=== PATIENT | female | born 1985 | race African-American/Black ===

== ENCOUNTER 2017-05-16 06:21 | Inpatient (IN) | payer OTHER ==
[2017-05-15 12:35] VITALS: BMI 44.4
[2017-05-16] MEDS ORDERED: LIDOCAINE HCL 2% 100 MG/5 ML DISP.SYRIN ONE (07:18)
[2017-05-16] MEDS ORDERED: DEXAMETHASONE SOD PHOSPHATE 4 MG/1 ML VIAL ONE (07:18)
[2017-05-16] MEDS ORDERED: MIDAZOLAM HCL 2 MG/2 ML SINGLE DOSE VIAL ONE ×3 (07:19→07:38)
[2017-05-16] MEDS ORDERED: SUCCINYLCHOLINE CHLORIDE 200 MG/10 ML VIAL ONE (07:19)
[2017-05-16] MEDS ORDERED: ROCURONIUM BROMIDE 50 MG/5 ML VIAL ONE ×2 (07:19→09:49)
[2017-05-16] MEDS ORDERED: PROPOFOL 20 ML ONE ×2 (07:19)
[2017-05-16] MEDS ORDERED: fentaNYL CITRATE 250 MCG/5 ML VIAL ONE (07:19)
[2017-05-16] MEDS ORDERED: BUPIVACAINE HCL/PF 0.5% (5MG/ML) 10 ML VIAL ONE (07:35)
[2017-05-16] MEDS ORDERED: BUPIVACAINE HCL/PF 0.25% (2.5MG/ML) 10 ML VIAL ONE (07:37)
[2017-05-16] MEDS ORDERED: DEXAMETHASONE SOD PHOSPHATE/PF 10 MG/ML SDV ONE (07:37)
--- NOTE | 2017-05-16 07:46 | HP ---
History & Physical Update - History History: No Change - Physical Physical: No Change - Assessment Assessment: No Change - Plan Plan: No Change (No interval changes since last visit. Will proceed with surgery as discussed with Dr Cazares)
[2017-05-16] MEDS ORDERED: ONDANSETRON 4 MG/2 ML VIAL IVPUSH PRN (08:10)
[2017-05-16] MEDS ORDERED: oxyCODONE HCL 5 MG TABLET PO PRN (08:10)
[2017-05-16] MEDS ORDERED: ceFAZolin SODIUM 1 GM VIAL IVPB ONE (08:52)
[2017-05-16] MEDS ORDERED: ceFAZolin SODIUM 1 GM VIAL ONE (09:07)
[2017-05-16] MEDS ORDERED: PHENYLEPHRINE HCL 10 MG/1 ML SINGLE DOSE VIAL ONE (09:19)
[2017-05-16] MEDS ORDERED: BUPIVACAINE HCL/PF 0.5% (5MG/ML) 10 ML VIAL IJ ONE ×2 (09:30→10:21)
[2017-05-16] MEDS ORDERED: GLYCOPYRROLATE 0.2 MG/1 ML VIAL ONE (10:06)
[2017-05-16] MEDS ORDERED: NEOSTIGMINE METHYLSULFATE 0.5 MG/ML - 10 ML MDV ONE (10:06)
--- NOTE | 2017-05-16 10:29 | OP ---
Operative Note - Note: Operative Date: 05/16/17 Pre-Operative Diagnosis: Morbid obesity Operation: Laparoscopic vertical sleeve gastrectomy, wedge liver biopsy, EGD Post-Operative Diagnosis: Other (Morbid obesity, hepatomegaly) Surgeon: Raf Cazares Level Vial Inside Grinder: Vianca Hollingsworth Anesthesia: General Specimens Removed: Greater curvature of stomach. Liver biopsy Estimated Blood Loss (mls): 30 Drains & Tubes with Location: 36 Fr bougie Operative Report Dictated: Yes
[2017-05-16] MEDS ORDERED: morphine CARPU-JECT 4 MG/1 ML DISP.SYRIN IVPUSH PRN (10:30)
--- NOTE | 2017-05-16 10:36 | SURG ---
Surgery President Financial Institution Note President Financial Institution: Vianca Hollingsworth PA-C Date of Service: 05/16/17 Diagnosis: morbid obesity Procedure: Laparoscopic vertical sleeve gastrectomy, wedge liver biopsy, EGD I was present for the entirety of the operative procedure. For further detail, please refer to operative report. Visit type - Case Type Case Type: Scheduled Admission - Emergency Emergency Visit: No - New patient This patient is new to me today: Yes Date on this admission: 05/16/17
[2017-05-16] MEDS ORDERED: FAMOTIDINE 20 MG/50 ML IVPB 20 MG/50 ML MG IVPB ONE ×2 (10:42)
[2017-05-16] MEDS ORDERED: ACETAMINOPHEN 1000 MG/100 ML VIAL (NON FORMULARY) IVPB ONE (10:45)
[2017-05-16] MEDS ORDERED: FAMOTIDINE 20 MG PREMIXED IVPB IVPB ONE (11:06)
[2017-05-16 11:12] LABS: HEMATOCRIT 34.5 % (32.4-45.2); HEMOGLOBIN 11.1 GM/dL (10.7-15.3); MCH 27.2 pg (25.7-33.7); MEAN CELL VOLUME 84.9 fl (80-96); MEAN PLT VOLUME 9.8 fl (7.5-11.1); PLATELET COUNT 323 K/MM3 (134-434); RBC 4.07 M/mm3 (3.60-5.2); RDW 15.3 % (11.6-15.6); WHITE BLOOD COUNT 15.4 K/mm3 (4.0-10.0)
[2017-05-16] MEDS ORDERED: ONDANSETRON 4 MG/2 ML VIAL IVPUSH ONE (11:17)
[2017-05-16] MEDS ORDERED: METOCLOPRAMIDE HCL INJECTION 10 MG/2 ML VIAL IVPUSH ONE (11:35)
[2017-05-16 11:52] LABS: ALBUMIN 3.6 g/dl (3.4-5.0); ANION GAP 11 (8-16); BILIRUBIN,TOTAL 0.3 mg/dL (0.2-1.0); BLOOD UREA NITROGEN 18 mg/dL (7-18); CALCIUM 8.6 mg/dL (8.5-10.1); CHLORIDE 104 mmol/L (98-107); CO2 22 mmol/L (21-32); CREATININE 0.7 mg/dL (0.55-1.02); GLUCOSE,RANDOM 168 mg/dL (74-106); POTASSIUM 4.3 mmol/L (3.5-5.1); SGOT/AST 29 U/L (15-37); SGPT/ALT 29 U/L (12-78); SODIUM 137 mmol/L (136-145); TOT PROT 7.2 g/dl (6.4-8.2)
[2017-05-16 11:53] LABS: ALK PHOS 56 U/L (45-117)
--- NOTE | 2017-05-16 14:33 | SPEC ---
DATE OF OPERATION: 05/16/2017 SURGEON: Raf Cazares MD PROFESSIONAL DEVELOPMENT INSTRUCTOR: MARIE Dudley PREOPERATIVE DIAGNOSIS:1. Morbid obesity. 2. Body Mass Index (BMI) of 44.4. POSTOPERATIVE DIAGNOSIS:1. Morbid obesity. 2. Body Mass Index (BMI) of 44.4. 3. Hepatomegaly. PROCEDURE: 1. Laparoscopic vertical sleeve gastrectomy. 2. Laparoscopic wedge liver biopsy. 3. Esophagogastroduodenoscopy/upper endoscopy. SPECIMENS: 1. Greater curvature of the stomach. 2. Liver biopsy. ESTIMATED BLOOD LOSS: 30 mL. DRAINS: None. ANESTHESIA: GET. BOUGIE: Size 36 Tongan. REASON FOR PROCEDURE: This is a 31-year-old female who presents to the office for weight loss. After describing different options, she decided to proceed with a laparoscopic vertical sleeve gastrectomy, possible open, possible liver biopsy and EGD. RISKS AND BENEFITS: After describing the different options for weight loss management, the patient decided to proceed with a laparoscopic, possible open vertical sleeve gastrectomy. The patient was seen by the respective subspecialties and cleared for surgery. The risks and benefits of the procedure were explained. These included bleeding, infection, hernia, AR, DVT, PE, injury to surrounding structures including the liver, colon, bowel, spleen, esophagus, vessel injury, nerve injury, weight regain, gastric leak, staple line leak, sleeve leak, obstruction, vitamin deficiency, hair loss and as some of the possible complications. The patient understood and signed informed consent. DESCRIPTION OF PROCEDURE: The patient was placed supine on the operating room table. The patient underwent general endotracheal intubation. A Gilliland catheter was inserted. The arms were brought out at 90 degrees and secured. A footboard was placed and the legs were secured laterally with padding. The abdomen was prepped and draped in the usual sterile fashion. A timeout was performed. An incision was made in the left upper quadrant and a Veress needle inserted. Pneumoperitoneum was established. Subsequently, the Veress needle was removed and a 12-mm trocar was placed. The laparoscopic camera was then inserted and inspection of the abdominal cavity was performed. An incision was then made in the supraumbilical area and a 15-mm trocar was placed under direct visualization. A 5-mm trocar was then placed in the right upper quadrant and a 5-mm trocar was placed below the left subcostal margin. A stab wound was made in the subxiphoid area and a Magaly clamp inserted and removed to dilate the tract. A Indra liver retractor was inserted. The post was secured at the bedside by the nursing staff. The patient was placed in steep reverse Trendelenburg position and the Indra liver retractor was used to secure the liver towards the anterior abdominal wall. The pylorus was identified and 6 cm proximal to it, the lesser sac was entered using the LigaSure device. All lateral attachments to the greater curvature of the stomach, including the short gastric vessels, were ligated using the LigaSure device toward the gastrosplenic and gastrophrenic ligaments. Once this was done in its entirety, it was confirmed that all tubes within the nasal or oropharyngeal cavity, including a temperature probe, was removed by Anesthesia. The bougie was then inserted by Anesthesia. Transection of the stomach was then begun staying adjacent to the bougie but away from the angularis. Transection of the stomach was performed near the portion of the stomach where the lesser sac was entered. Two laparoscopic Endo-DELMI black daron were used at this location. Laparoscopic Endo DELMI purple staple loads were then used for the remainder of the transection until the greater curvature of the stomach was fully transected. This was done staying close to the bougie. Care was taken to stay away from the angle of His cephalad. The staple line was then inspected. Hemostasis was identified. A leak test was then performed. It was clamped distally to the staple line. Irrigation solution was placed in the left upper quadrant and air was insufflated by Anesthesia into the sleeve. No leaks were identified. No obstruction was identified. This was done through the entirety of the staple line. At this point, the irrigation solution was suctioned and again, hemostasis was noted. A wedge liver biopsy was then performed. The left lobe of the liver was identified and a portion of the edge was grasped. Using electrocautery, a wedge of the liver was excised. This was removed and sent off the field as specimen. Hemostasis at the site of the wedge liver biopsy was attained using electrocautery. The 15-mm supraumbilical trocar was then removed and the greater curvature specimen removed from the site using a sponge stick hatfield. The specimen was inspected and a Veress needle inserted. The specimen insufflated adequately and no leak was identified. The staple line was noted to be intact. A Iban-Maador device was then used to temporarily close the fascia with a 0 Vicryl suture at the site. The 15-mm trocar was then reinserted and the 12-mm trocar in the left upper quadrant was removed. The fascia at this site was then closed using the Iban-Amador device with a 0 Vicryl suture. Again, hemostasis was noted. The Indra liver retractor was then removed under direct visualization. Pneumoperitoneum was desufflated and the fascial sutures were secured. Hemostasis was noted at all incision sites and Marcaine was injected at all incision sites. All incision sites were closed using 4-0 Biosyn. Sterile dressings were applied. The patient tolerated the procedure well and was transferred to the recovery room in stable condition with the Gilliland catheter intact. The patient was transferred to telemetry for further monitoring. In addition, upper endoscopy was performed. The endoscope was inserted into the patient's mouth. The entirety of the esophagus, GE junction, gastric pouch and staple line were inspected. Hemostasis was noted. No leak or obstruction was noted. The stomach was suctioned at the end and the endoscope removed. The patient tolerated the procedure well and was transferred to the recovery room in stable condition. Kandace [id number]
[2017-05-16] MEDS ORDERED: morphine SULFATE 4 MG/ML VIAL ONE (15:26)
[2017-05-16] MEDS: SODIUM CHLORIDE 1,000 ML IV SCH (15:27)
[2017-05-16] MEDS: LACTATED RINGERS SOLUTION 1,000 ML IV SCH (15:27)
[2017-05-16] MEDS: ONDANSETRON 4 MG/2 ML VIAL IVPUSH SCH ×3 (15:28→23:49)
[2017-05-16] MEDS: METOCLOPRAMIDE HCL INJECTION 10 MG/2 ML VIAL IVPUSH SCH ×2 (16:17→21:35)
[2017-05-16] MEDS: ACETAMINOPHEN 1000 MG/100 ML VIAL (NON FORMULARY) IVPB SCH ×2 (17:39→21:34)
[2017-05-16] MEDS: ENOXAPARIN NA (PORCINE) 40 MG/0.4 ML DISP.SYRIN SQ SCH (21:35)
[2017-05-16] MEDS: FAMOTIDINE 20 MG/50 ML IVPB 20 MG/50 ML MG IVPB SCH (21:35)
[2017-05-16] MEDS: morphine SULFATE 4 MG/ML VIAL IVPUSH PRN (23:44)
[2017-05-17] MEDS: ONDANSETRON 4 MG/2 ML VIAL IVPUSH SCH ×6 (02:40→22:35)
[2017-05-17] MEDS: ACETAMINOPHEN 1000 MG/100 ML VIAL (NON FORMULARY) IVPB SCH ×2 (03:30→10:03)
[2017-05-17] MEDS: METOCLOPRAMIDE HCL INJECTION 10 MG/2 ML VIAL IVPUSH SCH ×4 (04:30→20:38)
[2017-05-17 06:29] LABS: HEMATOCRIT 30.9 % (32.4-45.2); HEMOGLOBIN 10.2 GM/dL (10.7-15.3); MCH 27.9 pg (25.7-33.7); MCHC 32.9 g/dl (32.0-36.0); MEAN CELL VOLUME 84.9 fl (80-96); MEAN PLT VOLUME 10.4 fl (7.5-11.1); PLATELET COUNT 312 K/MM3 (134-434); RBC 3.64 M/mm3 (3.60-5.2); RDW 15.1 % (11.6-15.6); WHITE BLOOD COUNT 11.3 K/mm3 (4.0-10.0)
[2017-05-17] MEDS: SODIUM CHLORIDE 1,000 ML IV SCH ×2 (06:44→10:49)
[2017-05-17 07:11] LABS: ALBUMIN 3.2 g/dl (3.4-5.0); ANION GAP 14 (8-16); BLOOD UREA NITROGEN 7 mg/dL (7-18); CALCIUM 8.1 mg/dL (8.5-10.1); CHLORIDE 102 mmol/L (98-107); CO2 20 mmol/L (21-32); CREATININE 0.5 mg/dL (0.55-1.02); GLUCOSE,RANDOM 88 mg/dL (74-106); POTASSIUM 4.1 mmol/L (3.5-5.1); SGOT/AST 35 U/L (15-37); SGPT/ALT 34 U/L (12-78); SODIUM 136 mmol/L (136-145)
[2017-05-17 07:13] LABS: ALK PHOS 49 U/L (45-117); BILIRUBIN,TOTAL 0.3 mg/dL (0.2-1.0); TOT PROT 6.6 g/dl (6.4-8.2)
--- NOTE | 2017-05-17 09:08 | PN ---
Addendum entered and electronically signed by Larry Ramsay PA 05/17/17 10:15: UGI: no evidence of leak, extravasation or gastric outlet obstruction. BST1 diet ordered Original Note: Progress Note (short form) - Note Progress Note: POD #1 Alert. Sitting in bed. C/o intermittent nausea (no vomiting) and mild incisional tenderness. Adequate pain control via prn meds. Using her incentive spirometer as directed. She has gotten OOB and ambulated unassisted. Voiding spontaneously. Denies n/v/f/c, CP, palpitations, SOB, dizzy or weak. Last Vital Signs Temp Pulse Resp BP Pulse Ox 99.0 F 60 20 146/72 99 05/17/17 06:00 05/17/17 06:00 05/17/17 06:00 05/17/17 06:00 05/16/17 22:00 CBC, BMP 05/17/17 06:05 05/17/17 06:05 PE Gen: nad ABD: morbidly obese habitus. All surgical ports c/d/i. No hematoma LE: SCDs bilat. Soft. NT <Larry Ramsay P - Last Filed: 05/17/17 09:20> - Note Progress Note: Agree POD 1 Pain controlled Abd soft UGI: no leak/obstruction Clears Ambulate <Raf Cazares - Last Filed: 05/17/17 14:08> Problem List - Problems (1) Morbid obesity due to excess calories Assessment/Plan: POD #1 s/p Laparoscopic vertical sleeve gastrectomy, wedge liver biopsy, EGD f/u UGI --> if no leak will start bariatric stage 1 diet Cont oob and ambulate Incentive spirometer Pain management prn Zofran prn dc planning 05/18/17 Code(s): E66.01 - MORBID (SEVERE) OBESITY DUE TO EXCESS CALORIES <Larry Ramsay P - Last Filed: 05/17/17 09:20>
[2017-05-17] MEDS: LACTATED RINGERS SOLUTION 1,000 ML IV SCH (10:03)
[2017-05-17] MEDS: ENOXAPARIN NA (PORCINE) 40 MG/0.4 ML DISP.SYRIN SQ SCH ×2 (10:04→22:34)
[2017-05-17] MEDS: FAMOTIDINE 20 MG/50 ML IVPB 20 MG/50 ML MG IVPB SCH ×2 (10:04→22:34)
[2017-05-17] MEDS: morphine SULFATE 4 MG/ML VIAL IVPUSH PRN ×2 (10:04→20:34)
[2017-05-17] MEDS ORDERED: oxyCODONE HCL 5 MG TABLET PO PRN (10:19)
[2017-05-17] MEDS ORDERED: SODIUM CHLORIDE 1,000 ML IV SCH (10:30)
--- NOTE | 2017-05-17 16:03 | PATH ---
Surgical Pathology Report Patient Name: RAMIRO BROWN [facility]. Rec. #: [id number] /Age/Gender: 1985 (Age: 31) / F Account: [id number] Location: 4 W TELEMETRY U Taken: 05/16/2017 Received: 05/16/2017 Reported: 05/17/2017 Physicians: Raf Cazares M.D. Specimen(s) Received A: GREATER CURVATURE STOMACH B: LIVER BIOPSY Clinical History Morbid obesity Final Diagnosis A. STOMACH, GREATER CURVATURE, LAPAROSCOPIC VERTICAL SLEEVE GASTRECTOMY: PORTION OF STOMACH WITH MODERATE CHRONIC GASTRITIS. IMMUNOHISTOCHEMICAL STAIN FOR H. PYLORI IS POSITIVE (MANY). B. LIVER, BIOPSY: LIVER PARENCHYMA WITH MINIMAL STEATOSIS (< 5%). NO INCREASE IN IRON AND FIBROSIS ON PERFORMED SPECIAL STAINS (IRON AND TRICHROME). Electronically Signed Amrita Jurado M.D. Gross Description A. Received in formalin, labeled "greater curvature of stomach," is an 89 gram, 16.0 x 3.5 x 3.2 cm. portion of stomach with a stapled margin of resection. The serosa is jeong-montero with minimal attached fat. The mucosa is jeong-pink with normal folds. No mucosal masses are identified. Radio Frequency Engineer sections are submitted in one cassette. B. Received in formalin labeled "liver biopsy," and a 3.3 x 1.5 x 0.8 cm jeong, irregular portion of soft tissue, consistent with a liver biopsy. The specimen is sectioned and entirely submitted in one cassette. /05/16/2017 saudi05/16/2017
[2017-05-18] MEDS: METOCLOPRAMIDE HCL INJECTION 10 MG/2 ML VIAL IVPUSH SCH ×2 (03:18→09:54)
[2017-05-18] MEDS: ONDANSETRON 4 MG/2 ML VIAL IVPUSH SCH ×2 (03:18→06:30)
[2017-05-18 08:14] VITALS: BP 115/69; PULSE 60; TEMP 98.6
[2017-05-18] MEDS: LACTATED RINGERS SOLUTION 1,000 ML IV SCH (09:54)
[2017-05-18] MEDS: FAMOTIDINE 20 MG/50 ML IVPB 20 MG/50 ML MG IVPB SCH (09:54)
[2017-05-18] MEDS: ENOXAPARIN NA (PORCINE) 40 MG/0.4 ML DISP.SYRIN SQ SCH (09:54)
== END 2017-05-18 11:02 | disposition home or self-care (01) | DRG 403 ==
LOC: JSAMEDAYSX 06:21 → EDSTATUS 08:00 → J4W 14:45
PROVIDERS: ADMIT Surgery; ATTEND Surgery
PROC: 0FB24ZX Excision of Left Lobe Liver, Percutaneous Endoscopic Approach, Diagnostic (ICD-10-PCS; 2017-05-16)
PROC: 0DJ08ZZ Inspection of Upper Intestinal Tract, Via Natural or Artificial Opening Endoscopic (ICD-10-PCS; 2017-05-16)
PROC: 0DB64Z3 Excision of Stomach, Percutaneous Endoscopic Approach, Vertical (ICD-10-PCS; principal; 2017-05-16 08:00)
DX: E66.01 Morbid (severe) obesity due to excess calories (principal); Z68.41 Body mass index [BMI] 40.0-44.9, adult; R16.0 Hepatomegaly, not elsewhere classified; K29.50 Unspecified chronic gastritis without bleeding; B96.81 Helicobacter pylori [H. pylori] as the cause of diseases classified elsewhere
CPT/HCPCS: 36415; 74241-TC-FY; 80053; 84703; 85027; 86850; 86900; 86901; 88307-TC; 94010; 94760; J0131; J7030